=== PATIENT | female | born 1985 | race Caucasian/White ===

== ENCOUNTER 2017-11-24 10:11 | Emergency (ER) | payer BC, SELFPAY | END 2017-11-24 11:58 | disposition home or self-care (01) | PROVIDERS: Emergency Provider Nurse Practitioner; Family Provider Family Medicine; Visit Provider Nurse Practitioner | DX: J06.9 Acute upper respiratory infection, unspecified (principal); H60.91 Unspecified otitis externa, right ear; Z87.891 Personal history of nicotine dependence | CPT/HCPCS: 71020; 94640; 99201 ==

== ENCOUNTER → 2019-07-28 15:27 | Outpatient (CLI) | payer BC, SELFPAY ==
[2019-07-28 16:24] LABS: Basophils # 0.1 K/mm3 (0-0.2); Basophils % 1.1 % (0.1-2.0); Eosinophils # 0.2 K/mm3 (0.0-0.4); Eosinophils % 2.7 % (0.1-12.0); Hematocrit 43.1 % (37.0-47.0); Hemoglobin 14.2 g/dL (12.2-16.2); Lymphocytes # 3.6 K/mm3 (0.7-4.5); Lymphocytes % 51.7 % (10-50); Mean Corpuscular Hemoglobin 30.2 pg (27.0-31.2); Mean Corpuscular Volume 91.6 fl (81-99); Mean Platelet Volume 6.3 fl (7.4-10.4); Monocytes # 0.7 K/mm3 (0.1-1.0); Monocytes % 9.4 % (1.7-9.3); Neutrophils # 2.5 K/mm3 (1.8-7.8); Platelet Count 444 K/mm3 (142-424); Red Blood Count 4.71 M/mm3 (4.20-5.40); Red Cell Distribution Width 13.6 % (11.5-17.5)
[2019-07-28 16:34] LABS: MANUAL DIFFERENTIAL MANUAL DIFFERENTIAL (MANUAL DIFF)
[2019-07-28 21:53] LABS: Anisocytosis 1+; Eosinophils % 4 % (0-3); Lymphocytes % 65 % (10-50); Monocytes % 4 % (2-9); Neutrophils % 27 % (42-76); Platelet Estimate Normal; Total Cells Counted 100
[2019-07-30 07:20] LABS: HIV Screen 4th Generation wRfx Non Reactive (Non Reactive)
[2019-07-30 22:27] LABS: Hepatitis B Surface Antigen Negative (Negative); Hepatitis C Antibody <0.1 s/co ratio (0.0-0.9); Rapid Plasma Reagin Ab Titer Non Reactive (NonRea<1:1); Rubella Antibodies, IgG 8.55 index (Immune >0.99)
== END ==
PROVIDERS: Visit Provider Nurse Practitioner Obstetrics & Gynecology
DX: Z34.90 Encounter for supervision of normal pregnancy, unspecified, unspecified trimester (principal); Z3A.01 Less than 8 weeks gestation of pregnancy
CPT/HCPCS: 36415; 85007; 85025; 86592; 86703; 86762; 86850; 87340; 87380; G0432

== ENCOUNTER → 2019-08-02 13:34 | Outpatient (CLI) | payer BC, SELFPAY ==
--- NOTE | 2019-08-02 13:35 | US_ITS ---
PROCEDURE: US OB TRANSVAGINAL CLINICAL INDICATION: US OB TV before 12 wks for DATES COMPARISON: No exams were available for comparison TECHNIQUE: FINDINGS: The uterus is retroverted. A small cystic structure is present in the fundus of the uterus within the endometrium at 7 x 4 mm and could represent a early gestational sac. A pole is not evident. There is an 18 x 15 mm fibroid within the fundus of the uterus. The left ovary is 2.7 x 1.9 cm. The right ovary is 4 x 3.6 cm. There is blood flow within the ovaries. Small amount of fluid is present in the cul-de-sac. IMPRESSION: Retroverted uterus with small cystic structure within the endometrium. This could represent a very early gestational sac. Cannot confirm viability at this time. Recommend follow-up ultrasound as well as correlation with beta HCG. Dictated by: Grant Rome MD 08/02/2019 17:16 Signed by: <Electronically signed by Grant Rome MD in OV> 08/02/2019 17:16
[2019-08-02 14:55] LABS: HCG,Quantitative 829 mIU/mL
== END ==
PROVIDERS: PCP Family Medicine; Visit Provider Nurse Practitioner Obstetrics & Gynecology
DX: O26.841 Uterine size-date discrepancy, first trimester (principal); Z3A.01 Less than 8 weeks gestation of pregnancy
CPT/HCPCS: 36415; 76817; 84702

== ENCOUNTER 2019-08-02 19:20 | Observation (INO) ==
[2019-08-02 19:45] LABS: Microscopic, Urine URINE MICROSCOPIC (MICROSCOPIC)
[2019-08-02 19:53] LABS: Appearance,Urine CLEAR (Clear); Bilirubin,Urine Negative (Negative); Blood, Urine Negative (Negative); Color,Urine YELLOW (Yellow); Glucose,Urine (UA) Negative (Negative); Ketones,Urine Negative (Negative); Leukocyte Esterase,Urine Negative (Negative); Protein,Urine Negative (Negative); Specific Gravity, Urine <= 1.005 (1.005-1.030); Urobilinogen,Urine 0.2 EU/dl (0.2)
[2019-08-02 20:17] LABS: Bacteria,Urine Trace /lpf; Squamous Epithelial Cell,Urine Occasional #/hpf (0-5); WBC,Urine Occasional #/hpf (0-3)
[2019-08-02 20:39] LABS: Basophils # 0.1 K/mm3 (0-0.2); Basophils % 0.9 % (0.1-2.0); Eosinophils # 0.2 K/mm3 (0.0-0.4); Eosinophils % 2.9 % (0.1-12.0); Hematocrit 42.6 % (37.0-47.0); Hemoglobin 14.1 g/dL (12.2-16.2); Lymphocytes # 3.4 K/mm3 (0.7-4.5); Lymphocytes % 42.1 % (10-50); Mean Corpuscular HGB Conc 33.1 g/dL (31.8-35.4); Mean Corpuscular Volume 92.7 fl (81-99); Mean Platelet Volume 6.4 fl (7.4-10.4); Monocytes # 0.3 K/mm3 (0.1-1.0); Monocytes % 3.8 % (1.7-9.3); Neutrophils % 50.3 % (37.0-80.0); Platelet Count 390 K/mm3 (142-424)
[2019-08-02 21:20] LABS: Albumin Level 3.5 gm/dL (3.4-5.0); Albumin/Globulin Ratio 0.9 (1.1-1.8); Anion Gap 15.6 mEq/L (5-15); Bilirubin,Total 0.1 mg/dL (0.2-1.0); Calcium 8.9 mg/dL (8.5-10.1); Globulin 4.1 gm/dl (1.3-3.2); Total Protein,Serum 7.6 gm/dL (6.4-8.2)
--- NOTE | 2019-08-02 23:18 | Emergency Department Note ---
ED Disposition Clinical Impression: Pelvic pain Qualifiers: Weeks of gestation: less than 8 weeks Qualified Code(s): Z3A.01 - Less than 8 weeks gestation of Disposition: Admitted as Observation Condition on Discharge: Good Referrals: Frandy Castellon MD [Primary Care Provider] - - Critical Care Critical Care Time: No Attestation: On 08/02/19, the high probability of a clinically significant, sudden or life threatening deterioration of the following system(s) required my full and direct attention, intervention and personal management. The time I documented below is in addition to time spent performing reported procedures but includes the following listed in this critical care notation. Medical Decision Making - Medical Records Medical records reviewed: Yes: I reviewed the patient's medical records. - Andrea Inquiry Pt receiving controlled substance: No Vital Signs: 08/02/19 19:24 08/02/19 21:25 08/02/19 22:18 Temperature 98.6 F Temperature Source Oral Pulse Rate [Right Brachial] 98 H 96 H 94 H Respiratory Rate 20 18 18 Blood Pressure [Right Arm] 152/84 H 138/70 158/76 H Blood Pressure Mean [Right Arm] 106 92 103 Blood Pressure Source [Right Arm] Automatic Cuff Automatic Cuff Automatic Cuff Blood Pressure Position [Right Arm] Sitting Sitting Sitting 02 Sat by Pulse Oximetry 100 100 98 Oxygen Delivery Method Room Air Room Air Room Air 08/02/19 23:08 Temperature Temperature Source Pulse Rate [Right Brachial] 94 H Respiratory Rate 18 Blood Pressure [Right Arm] 172/97 H Blood Pressure Mean [Right Arm] 122 Blood Pressure Source [Right Arm] Automatic Cuff Blood Pressure Position [Right Arm] Sitting 02 Sat by Pulse Oximetry 98 Oxygen Delivery Method Room Air - Lab Data Lab results reviewed: Yes: I reviewed the patient's lab results. Lab Results 08/02/19 19:24: Urine Color Yellow, Urine Appearance Clear, Urine pH 6.0, Ur Sp ecific [place] <= 1.005, Urine Protein Negative, Urine Glucose (UA) Negative, Urine Ketones Negative, Urine Blood Negative, Urine Nitrate Negative, Urine Bilirubin Negative, Urine Urobilinogen 0.2, Ur Leukocyte Esterase Negative, Urine WBC Occasional, Ur Squamous Epith Cells Occasional, Urine Bacteria Trace 08/02/19 19:24: Urine HCG, Qual Positive 08/02/19 20:20: WBC 8.0, RBC 4.60, Hgb 14.1, Hct 42.6, MCV 92.7, MCH 30.7, MCHC 33.1, RDW 14.0, Plt Count 390, MPV 6.4 L, Neut % (Auto) 50.3, Lymph % (Auto) 42.1, [place] % (Auto) 3.8, Eos % (Auto) 2.9, Baso % (Auto) 0.9, Neut # (Auto) 4.0, Lymph # (Auto) 3.4, [place] # (Auto) 0.3, Eos # (Auto) 0.2, Baso # (Auto) 0.1 08/02/19 20:20: Sodium 140, Potassium 3.6, Chloride 103, Carbon Dioxide 25, Anion Gap 15.6 H, BUN 10, Creatinine 0.72, Estimated Creat Clear 175, Estimated GFR 93, Est GFR ( Amer) 113, Glucose 96, Calcium 8.9, Total Bilirubin 0.1 L, AST 17, ALT 36, Alkaline Phosphatase 77, Total Protein 7.6, Albumin 3.5, Globulin 4.1 H, Albumin/Globulin Ratio 0.9 L 08/02/19 20:20: HCG, Quant 875 H Result diagrams: 08/02/19 20:20 08/02/19 20:20 Orders (Tests/Meds): ED MEDICATIONS Generic Name Dose Route Start Last Admin Trade Name Laura PRN Reason Stop Dose Admin Sodium Chloride 1,000 mls @ 999 mls/hr 08/02/19 20:00 08/02/19 22:53 Sod Chlor 0.9% 1000ml Bag IV 08/02/19 21:00 Not Given .[id number] CHAITANYA - Physician Consults Physician Consulted: azul Reason -: Admission HPI - General Chief complaint: OB/Uterine Contractions Stated complaint: 4 wk Preg with Abd pain Time Seen by Provider: 08/02/19 23:13 Mode of Arrival: Ambulatory Source of Information: Patient, Spouse, Medical Record Limitations: No Limitations Description of Symptoms (Recalled from ER Triage Doc. by RN): Pt c/o abd pain and vaginal spotting that started 2 days ago. She had an ultrasound today and the pain has just gotten worse. She states she is 4 weeks . She states stated that he wanted to repeat another ultrasound in 2 days, and to come to the ER is her pain got worse. - History of Present Illness HPI Narrative: progressive lt pelvic pain in this wf with no spotting - no fever or trauma- has increased during the day and had inconclusive u/s earlier today MD Complaint: other (pelvic pain) Onset (ago): day(s) Consistency: constant Location: pelvis Severity: moderate Associated symptoms: denies other symptoms : yes Date of Last Menstrual Period: June 15 care: none - Related Data Home Medications Medication Instructions Recorded Confirmed No Known Home Medications 08/02/19 08/02/19 Allergies Allergy/AdvReac Type Severity Reaction Status Date / Time No Known Allergies Allergy Verified 08/02/19 22:32 [facility] History - Hepatitis A Screen Drug use history?: No High risk sexual behaviors?: No History of sexually transmitted infection?: No Currently employed?: No Childcare worker?: No Do you have indoor plumbing?: Yes Do you have electricity?: Yes Attestation statement:: This patient has been screened for Hepatitis A risk factors. I have reviewed the patient's past medical history: Yes Amputation: No Fractures: No - Social History Smoking Status: Current every day smoker # Packs/Day (cigarettes): 1 Alcohol Intake: former Occupational Status: employed Housing: house Family Hx:: No significant family history ROS Obtained: Yes All systems reviewed & no additional complaints - Constitutional Constitutional: Denies fever(s) - Eyes Eyes: Denies eye pain - ENT Ears, Nose, Mouth, and Throat: Denies sore throat - Cardiovascular Cardiovascular: Denies chest pain - Respiratory Respiratory: No cough - Gastrointestinal Gastrointestingal: Denies: abdominal pain - Genitourinary Female Genitourinary: Reports as per HPI, Denies abnormal vaginal bleeding, Denies hematuria - Musculoskeletal Musculoskeletal: Denies joint swelling - Integumentary/Breasts Skin/Breast: Denies rash - Neurologic Neurologic: Denies seizure-like activity Physical Exam - General General appearance: alert - Head Head exam: normocephalic - Eye Eye exam: Present: PERRL, EOMI - ENT ENT exam: Present: mucous membranes dry - Neck Neck exam: Present: trachea midline - Respiratory Respiratory exam: Absent: respiratory distress - Cardiovascular Cardiovascular exam: Present: regular rate - Abdominal Exam Abdominal exam: Present: soft - Extremities Exam Extremities exam: Present: full ROM - Neurological Exam Neurological exam: Present: alert, oriented X3, CN II-XII intact - Psychiatric Psychiatric exam: Present: normal affect - Skin Skin exam: Absent: rash
[2019-08-03 06:40] LABS: Basophils # 0.1 K/mm3 (0-0.2); Basophils % 0.8 % (0.1-2.0); Eosinophils # 0.2 K/mm3 (0.0-0.4); Eosinophils % 2.4 % (0.1-12.0); Hematocrit 36.9 % (37.0-47.0); Lymphocytes # 3.5 K/mm3 (0.7-4.5); Lymphocytes % 52.9 % (10-50); Mean Corpuscular HGB Conc 32.1 g/dL (31.8-35.4); Mean Corpuscular Volume 92.3 fl (81-99); Mean Platelet Volume 7.2 fl (7.4-10.4); Monocytes # 0.6 K/mm3 (0.1-1.0); Monocytes % 8.7 % (1.7-9.3); Neutrophils # 2.3 K/mm3 (1.8-7.8); Neutrophils % 35.3 % (37.0-80.0); Platelet Count 343 K/mm3 (142-424); White Blood Count 6.6 K/mm3 (4.8-10.8)
[2019-08-03 06:48] LABS: Hemoglobin 11.9 g/dL (12.2-16.2)
[2019-08-03 06:57] LABS: Anion Gap 11.8 mEq/L (5-15)
--- NOTE | 2019-08-03 07:20 | Pharmacy Consult Notes ---
[facility] Pharmacy VTE Monitoring - Patient Demographics Admission date: 08/03/19 Report Date: 08/03/19 Time: 07:20 Allergies/Adverse Reactions: Patient Allergies No Known Allergies Allergy (Verified 08/02/19 22:32) Height: 1.68 m Weight: 99.96 kg Patient Problems: Current Active Problems Pelvic pain (Acute) (Acute) - VTE Risk Labs: VTE Related Lab Results Hgb 11.9 g/dL (12.2-16.2) L D 08/03/19 06:25 Hct 36.9 % (37.0-47.0) L 08/03/19 06:25 Plt Count 343 K/mm3 (142-424) 08/03/19 06:25 BUN 9 mg/dL (7-18) 08/03/19 06:25 Creatinine 0.55 mg/dL (0.55-1.02) D 08/03/19 06:25 Estimated Creat Clear 230 mL/min (50-200) 08/03/19 06:25 Was VTE Risk Assessment Performed: Yes VTE Score: 0 VTE Risk Level: Very Low Risk Clinical Trial Participant: No - Prophylaxis VTE Prophylaxis Ordered?: Yes Types of VTE Prophylaxis: TEDS Knee High Location of Applied Device: Bilateral Lower Extremeties
[2019-08-03 08:09] LABS: Eosinophils % 2 % (0-3); Lymphocytes % 45 % (10-50); Monocytes % 16 % (2-9); Neutrophils % 36 % (42-76); RBC Morphology Normal; Total Cells Counted 100
--- NOTE | 2019-08-03 09:03 | History & Physical Report ---
*Admission Date: 08/03/19 *Chief complaint: Left lower quadrant pain, early *History of present illness: She is a 34-year-old 2 para 1 at about 6 weeks gestational age. She had an ultrasound yesterday that showed a gestational sac but no fetus. Her beta hCGs have dropped from 852 -725. She was admitted through the ER with left lower quadrant pain. Ultrasound yesterday showed free fluid in the pelvis as well. I suspect she may have an ectopic on the left-hand side since she complains of severe left lower quadrant pain. [facility] History I have reviewed the patient's past medical history: Yes Medical History: Denies:: Cancer, Diabetes Mellitus Type 1, Diabetes Mellitus Type 2, MRSA *Have you ever received a pneumonia vaccine?: No *Have you received a flu vaccine this season?: No Other Surgeries: Yes: Cholecystectomy Amputation: No Fractures: No - *Social History Educational Level: Completed High School Smoking Status: Current every day smoker Tobacco Type: cigarettes # Packs/Day (cigarettes): 1 Alcohol Intake: never *Occupational Status:: employed Housing: house Household Members: spouse *Travel in the last 8 weeks: None Family Hx:: Cancer Review of Systems - Review of Systems Review of systems:: pertinent systems reviewed and negative unless documented below - *Neurologic Denies seizure-like activity Meds Home Medications Medication Instructions Recorded Confirmed Type Pnv95/Iron Fum/Folic Acid 1 each PO DAILY 08/03/19 08/03/19 History [ Tablet] Allergies Allergy/AdvReac Type Severity Reaction Status Date / Time No Known Allergies Allergy Verified 08/02/19 22:32 Exam Vital signs and Labs for Last 24 Hours: Temp Pulse Resp BP Pulse Ox 98.3 F 75 17 108/56 L 92 L 08/03/19 08:00 08/03/19 08:00 08/03/19 08:00 08/03/19 08:00 08/03/19 08:00 Laboratory Results - last 24 hr 08/02/19 19:24: Urine Color Yellow, Urine Appearance Clear, Urine pH 6.0, Ur Specific [place] <= 1.005, Urine Protein Negative, Urine Glucose (UA) Negative, Urine Ketones Negative, Urine Blood Negative, Urine Nitrate Negative, Urine Bilirubin Negative, Urine Urobilinogen 0.2, Ur Leukocyte Esterase Negative, Urine WBC Occasional, Ur Squamous Epith Cells Occasional, Urine Bacteria Trace 08/02/19 19:24: Urine HCG, Qual Positive 08/02/19 20:20: WBC 8.0, RBC 4.60, Hgb 14.1, Hct 42.6, MCV 92.7, MCH 30.7, MCHC 33.1, RDW 14.0, Plt Count 390, MPV 6.4 L, Neut % (Auto) 50.3, Lymph % (Auto) 42.1, [place] % (Auto) 3.8, Eos % (Auto) 2.9, Baso % (Auto) 0.9, Neut # (Auto) 4.0, Lymph # (Auto) 3.4, [place] # (Auto) 0.3, Eos # (Auto) 0.2, Baso # (Auto) 0.1 08/02/19 20:20: Sodium 140, Potassium 3.6, Chloride 103, Carbon Dioxide 25, Anion Gap 15.6 H, BUN 10, Creatinine 0.72, Estimated Creat Clear 175, Estimated GFR 93, Est GFR ( Amer) 113, Glucose 96, Calcium 8.9, Total Bilirubin 0.1 L, AST 17, ALT 36, Alkaline Phosphatase 77, Total Protein 7.6, Albumin 3.5, Globulin 4.1 H, Albumin/Globulin Ratio 0.9 L 08/02/19 20:20: HCG, Quant 875 H 08/03/19 06:25: WBC 6.6, RBC 4.00 L, Hgb 11.9 L D, Hct 36.9 L, MCV 92.3, MCH 29.6, MCHC 32.1, RDW 14.0, Plt Count 343, MPV 7.2 L, Neut % (Auto) 35.3 L, Lymph % (Auto) 52.9 H, [place] % (Auto) 8.7, Eos % (Auto) 2.4, Baso % (Auto) 0.8, Neut # (Auto) 2.3, Lymph # (Auto) 3.5, [place] # (Auto) 0.6, Eos # (Auto) 0.2, Baso # (Auto) 0.1, Total Counted 100, Neutrophils % (Manual) 36 L, Band Neutrophils % 1.0, Lymphocytes % (Manual) 45, Monocytes % (Manual) 16 H, Eosinophils % (Manual) 2, Platelet Estimate Normal, RBC Morphology Normal 08/03/19 06:25: Sodium 140, Potassium 3.8, Chloride 108 H, Carbon Dioxide 24, Anion Gap 11.8, BUN 9, Creatinine 0.55 D, Estimated Creat Clear 230, Estimated GFR 127, Est GFR ( Amer) 154 D, Glucose 99, Calcium 8.0 L D, HCG, Quant 752 H I & O for Last 24 hours: Intake & Output 07/31/19 08/01/19 08/02/19 08/03/19 11:59 11:59 11:59 11:59 Intake Total 2255 / 2255 Balance 2255 Weight 220 lb 6 oz - Constitutional no acute distress - *Routine HEENT Exam Head: Present: normocephalic Eye: Present: EOMI, PERRL ENT: Present: mucous membranes moist - *Routine Neck Exam Present: supple, full ROM - *Routine Respiratory Exam Absent: accessory muscle use (good air entry bilaterally), wheezes, crackles - *Routine Cardiovascular Exam Present: RRR. Absent: murmur - *Routine Abdominal Exam Present: soft, normoactive bowel sounds. Absent: tenderness, rebound, guarding, mass - *Routine Rectal Exam Patient deferred: visual exam, digital exam - *Routine Exam Patient deferred: external exam, groin exam, perineal exam - *Routine Extremities Exam Present: full ROM. Absent: cyanosis, edema, calf tenderness - *Routine Skin Exam Present: intact (good color) - *Routine Neurological Exam Present: alert, oriented X3 - Routine Psychiatric Exam Present: normal affect Assessment and Plan (1) Ectopic without intrauterine Current visit: Yes Status: Acute Category: Medical Code(s): O00.90 - Unspecified ectopic without intrauterine (2) Pelvic pain Current visit: Yes Status: Acute Category: Medical Code(s): R10.2 - Pelvic and perineal pain (3) Current visit: Yes Status: Acute Qualifiers: Weeks of gestation: less than 8 weeks Qualified Code(s): Z3A.01 - Less than 8 weeks gestation of Category: Medical Code(s): Z34.90 - Encounter for supervision of normal , unspecified, unspecified trimester - Assessment and plan all Dx Assessment and Plan for all problems:: Her beta hCGs have dropped and I suspect she has an ectopic that may be leaking. We will go ahead with a laparoscopy this morning. I discussed the risks of salpingectomy. We discussed salpingostomy. We discussed the risks of surgery that includes bleeding, infection, injuries to the bowel and bladder. We discussed the rare risk of laparotomy. All questions were answered and consents were signed. I told her that I cannot promise that I can save her left tube if that indeed is where the ectopic is located because it may have already ruptured. She understands this. She understands that it may affect her future fertility as well. This was a Clomid induced .
[2019-08-03 12:02] LABS: Basophils # 0.1 K/mm3 (0-0.2); Basophils % 1.1 % (0.1-2.0); Eosinophils # 0.2 K/mm3 (0.0-0.4); Hemoglobin 12.4 g/dL (12.2-16.2); Lymphocytes % 52.4 % (10-50); Mean Corpuscular HGB Conc 31.8 g/dL (31.8-35.4); Mean Corpuscular Volume 92.4 fl (81-99); Mean Platelet Volume 6.4 fl (7.4-10.4); Monocytes # 0.7 K/mm3 (0.1-1.0); Neutrophils # 1.8 K/mm3 (1.8-7.8); Neutrophils % 31.5 % (37.0-80.0); Platelet Count 330 K/mm3 (142-424); Red Blood Count 4.22 M/mm3 (4.20-5.40); White Blood Count 5.7 K/mm3 (4.8-10.8)
--- NOTE | 2019-08-03 16:36 | Operative Note ---
Date of procedure: 08/03/19 Pre-op Diagnosis:: Severe left lower quadrant pain, possible ectopic , missed Post-op Diagnosis:: Severe left lower quadrant pain, left ovarian adhesion, no evidence of ectopic , missed Procedure performed:: Diagnostic laparoscopy, laparoscopy with lysis of ovarian adhesion, dilation and curettage Surgeon:: Myke Adrian MD FUNERAL ASSISTANT:: Tre Sánchez Anesthesia: GETA Estimated blood loss (mL): 100 Clinical Note:: She is a 34-year-old 2 para 1 who is 6+ weeks gestational age. She was admitted last night through the ER with severe lower abdominal pain. She was seen this morning and continued to have severe left lower quadrant pain. An ectopic was suspected. She did have an ultrasound yesterday that showed fluid in the pelvis. Her beta hCG is dropped from 875-750. I also felt that given the beta is dropping she was having a possible miscarriage as well. Operative findings:: She had an anteverted bulky uterus. There was a fibroid within the uterus. The left ovary at its medial and was adherent to the side of the uterus. Both tubes were seen and appeared completely normal. There was no evidence of any bleeding from either tube. The fluid in the pelvis was straw-colored. Operative note:: She was taken the operating room where general anesthesia was found be adequate. She was prepped and draped in normal sterile fashion in the semilithotomy position. Weighted speculum space in the vagina, the anterior lip of the cervix was grasped and a Christine uterine manipulator was placed within the uterine cavity. I then changed gloves and injected approximately 10 cc of 0.5% ropivacaine around the umbilicus. I made a small incision within the umbilicus and then inserted a Veress needle into the abdominal cavity. The abdominal cavity was then insufflated with carbon dioxide gas to a pressure of 20 mmHg. I then injected through and through the pubic hairline, made a small incision here and inserted a 5 mm trocar under direct vision. This was followed by identifying the inferior epigastric arteries on the left side, going lateral to these and injected through and through. I then inserted a 5 mm trocar here under direct vision as well. The findings were as previously dictated. She did have some adhesions along the ascending colon on the right side. Tubes and ovaries were visualized and appeared completely normal except for the left ovary that was adherent to the left side of the uterus. There is a small piece of tissue hanging from this and I sent off to pathology. There is a small amount of bleeding from the posterior aspect of the uterus and it was slightly raw from using the treatments. I sprayed this area with Edy. We then rinsed the pelvis well with warm saline and injected approximately 30 cc of 0.5% ropivacaine into the pelvis. Secondary trochars were then removed under direct vision. Gas was noted of the abdomen and the primary trocar and camera removed together. No bowel was seen to follow. The 11 mm umbilical port was closed with [id number] 2-0 Vicryl suture. The skin was closed with some particular 4-0 Monocryl suture. The 5 mm trocar sites were closed with subcuticular 4-0 Monocryl suture. I then please the patient in the lithotomy position and remove the Christine uterine manipulator. I further dilate the cervix to approximately 8 mm. Then using a medium curette I curetted the entire uterine contents. This was sent to pathology. She tolerated procedure well and was taken to the recovery room in excellent condition. All sponge instrument and needle counts were correct. The estimate of blood loss was less than 100 cc. Condition: stable Disposition: PACU Specimens:: Left ovarian adhesion, endometrial curettings Complications:: None
--- NOTE | 2019-08-03 16:41 | Progress Note ---
[facility] Anesthesia Checklist - Patient Identification Patient Identification: Arm Band - Structural Data Admitted From: Inpatient Planned Operative Procedure/s: diagnostic laparoscopy Consent for Planned Operative Procedure(s) Verified: Yes Verified Documents: Surgical Consent, History and Physical - NPO Status Verified Time NPO: 00:00 - Additional verifications Anesthesia Reactions: No - Airway Assessment C-Spine Mobility Assessed: Yes (mp2) TMJ Mobility Assessed: Yes Dentition: Good Dentition - Neurological Assessment Level of Consciousness: Awake, Alert - Anesthesia Plan Anesthesia Risk discussed: Yes Anesthesia Plan: Verified ASA Class: II Anesthesia Type: General [facility] History I have reviewed the patient's past medical history: Yes Medical History: Denies:: Cancer, Diabetes Mellitus Type 1, Diabetes Mellitus Type 2, MRSA *Have you ever received a pneumonia vaccine?: No *Have you received a flu vaccine this season?: No Anesthesia experience/problems:: nac Other Surgeries: Yes: Cholecystectomy Amputation: No Fractures: No - *Social History Educational Level: Completed High School Smoking Status: Current every day smoker Tobacco Type: cigarettes # Packs/Day (cigarettes): 1 Alcohol Intake: never Substance Use Type: denies use *Occupational Status:: employed Housing: house Household Members: spouse *Travel in the last 8 weeks: None Family Hx:: Cancer
--- NOTE | 2019-08-03 16:42 | Progress Note ---
[facility] Anesthesia Record Part II Discharge Time: 17:05 Destination: 2nd floor PACU nurse assessment reviewed?: Yes Patient Condition:: Good Anesthesia Complications:: None Swallowing reflex intact?: Yes Cyanosis?: No
--- NOTE | 2019-08-03 16:42 | Progress Note ---
[facility] Anesthesia Record Part I Intake, IV Amount: 800 Estimated blood loss (mL): 100 Urine output (mL): 50 Blood Pressure: 128/57 SaO2: 95 Pulse Rate: 82 Respiratory Rate: 16 Temperature: 97.5 F Patient is:: Drowsy, Stable Stable to PACU at:: 16:35
--- NOTE | 2019-08-03 16:46 | Discharge Summary ---
General - General Admission date:: 08/03/19 Discharge date: 08/03/19 HPI HPI: She is a 34-year-old 2 para 1 at about 6 weeks gestational age. She had an ultrasound yesterday that showed a gestational sac but no fetus. Her beta hCGs have dropped from 852 -725. She was admitted through the ER with left lower quadrant pain. Ultrasound yesterday showed free fluid in the pelvis as well. I suspect she may have an ectopic on the left-hand side since she complains of severe left lower quadrant pain. Hospital Course Hospital Course: This morning she had continued severe left lower quadrant pain and I suspected an ectopic . As result of that she underwent a diagnostic laparoscopy. At the time of the diagnostic laparoscopy there was no evidence of an ectopic . Both tubes were followed to their fimbriated end. There was an adhesion of the left ovary to the left side of the uterus and this was taken down with blunt dissection. It was a small amount of tissue adherent here and this was sent off to pathology. A D&C was performed as well. Her beta hCGs had dropped from 8 75-7 50. I missed was suspected if an ectopic was not found which was the case. Objective Vital signs: Temp Pulse Resp BP Pulse Ox 97.5 F L 82 16 128/57 L 92 L 08/03/19 16:42 08/03/19 16:42 08/03/19 16:42 08/03/19 16:42 08/03/19 08:00 no acute distress Results Labs on day of discharge: Labs from last 24 hours 08/03/19 08/03/19 08/03/19 11:15 06:25 06:25 WBC 5.7 6.6 RBC 4.22 4.00 L Hgb 12.4 11.9 L D Hct 39.0 36.9 L MCV 92.4 92.3 MCH 29.4 29.6 MCHC 31.8 32.1 RDW 14.0 14.0 Plt Count 330 343 MPV 6.4 L 7.2 L Neut % (Auto) 31.5 L 35.3 L Lymph % (Auto) 52.4 H 52.9 H [place] % (Auto) 12.0 H 8.7 Eos % (Auto) 3.0 2.4 Baso % (Auto) 1.1 0.8 Neut # (Auto) 1.8 2.3 Lymph # (Auto) 3.0 3.5 [place] # (Auto) 0.7 0.6 Eos # (Auto) 0.2 0.2 Baso # (Auto) 0.1 0.1 Total Counted 100 Neutrophils % (Manual) 36 L Band Neutrophils % 1.0 Lymphocytes % (Manual) 45 Monocytes % (Manual) 16 H Eosinophils % (Manual) 2 Platelet Estimate Normal RBC Morphology Normal Sodium 140 Potassium 3.8 Chloride 108 H Carbon Dioxide 24 Anion Gap 11.8 BUN 9 Creatinine 0.55 D Estimated Creat Clear 230 Estimated GFR 127 Est GFR ( Amer) 154 D Glucose 99 Calcium 8.0 L D Total Bilirubin AST ALT Alkaline Phosphatase Total Protein Albumin Globulin Albumin/Globulin Ratio HCG, Quant 752 H Urine Color Urine Appearance Urine pH Ur Specific [place] Urine Protein Urine Glucose (UA) Urine Ketones Urine Blood Urine Nitrate Urine Bilirubin Urine Urobilinogen Ur Leukocyte Esterase Urine WBC Ur Squamous Epith Cells Urine Bacteria Urine HCG, Qual 08/02/19 08/02/19 08/02/19 20:20 20:20 20:20 WBC 8.0 RBC 4.60 Hgb 14.1 Hct 42.6 MCV 92.7 MCH 30.7 MCHC 33.1 RDW 14.0 Plt Count 390 MPV 6.4 L Neut % (Auto) 50.3 Lymph % (Auto) 42.1 [place] % (Auto) 3.8 Eos % (Auto) 2.9 Baso % (Auto) 0.9 Neut # (Auto) 4.0 Lymph # (Auto) 3.4 [place] # (Auto) 0.3 Eos # (Auto) 0.2 Baso # (Auto) 0.1 Total Counted Neutrophils % (Manual) Band Neutrophils % Lymphocytes % (Manual) Monocytes % (Manual) Eosinophils % (Manual) Platelet Estimate RBC Morphology Sodium 140 Potassium 3.6 Chloride 103 Carbon Dioxide 25 Anion Gap 15.6 H BUN 10 Creatinine 0.72 Estimated Creat Clear 175 Estimated GFR 93 Est GFR ( Amer) 113 Glucose 96 Calcium 8.9 Total Bilirubin 0.1 L AST 17 ALT 36 Alkaline Phosphatase 77 Total Protein 7.6 Albumin 3.5 Globulin 4.1 H Albumin/Globulin Ratio 0.9 L HCG, Quant 875 H Urine Color Urine Appearance Urine pH Ur Specific [place] Urine Protein Urine Glucose (UA) Urine Ketones Urine Blood Urine Nitrate Urine Bilirubin Urine Urobilinogen Ur Leukocyte Esterase Urine WBC Ur Squamous Epith Cells Urine Bacteria Urine HCG, Qual 08/02/19 08/02/19 19:24 19:24 WBC RBC Hgb Hct MCV MCH MCHC RDW Plt Count MPV Neut % (Auto) Lymph % (Auto) [place] % (Auto) Eos % (Auto) Baso % (Auto) Neut # (Auto) Lymph # (Auto) [place] # (Auto) Eos # (Auto) Baso # (Auto) Total Counted Neutrophils % (Manual) Band Neutrophils % Lymphocytes % (Manual) Monocytes % (Manual) Eosinophils % (Manual) Platelet Estimate RBC Morphology Sodium Potassium Chloride Carbon Dioxide Anion Gap BUN Creatinine Estimated Creat Clear Estimated GFR Est GFR ( Amer) Glucose Calcium Total Bilirubin AST ALT Alkaline Phosphatase Total Protein Albumin Globulin Albumin/Globulin Ratio HCG, Quant Urine Color Yellow Urine Appearance Clear Urine pH 6.0 Ur Specific [place] <= 1.005 Urine Protein Negative Urine Glucose (UA) Negative Urine Ketones Negative Urine Blood Negative Urine Nitrate Negative Urine Bilirubin Negative Urine Urobilinogen 0.2 Ur Leukocyte Esterase Negative Urine WBC Occasional Ur Squamous Epith Cells Occasional Urine Bacteria Trace Urine HCG, Qual Positive DS: Diagnosis - Discharge Diagnosis (1) Ectopic without intrauterine Status: Acute (2) Pelvic pain Status: Acute (3) Status: Acute (4) Missed with demise before 20 completed weeks of gestation Status: Acute Discharge Plan - Patient Discharge Instructions ACTIVITY: No heavy lifting DIET: continue same diet Patient Instructions: DI for Surgical Site Infection, Surgical Site Infection, DI for Pelvic Pain - Follow up Plan Disposition: Home, Self-[facility] Medications: Home Medications Medication Instructions Recorded Confirmed Type Pnv95/Iron Fum/Folic Acid 1 each PO DAILY 08/03/19 08/03/19 History [ Tablet] Prescriptions/Medication Reconciliation: Continued Pnv95/Iron Fum/Folic Acid [ Tablet] 1 each PO DAILY - Problem Reconciliation Problems Reviewed?: Yes
== END 2019-08-03 18:32 | disposition home or self-care (01) ==
LOC: ER 19:20 → 2ND 19:20
PROVIDERS: ADMIT Nurse Practitioner Obstetrics & Gynecology; ATTEND Nurse Practitioner Obstetrics & Gynecology
DX: O02.1 Missed abortion; N73.6 Female pelvic peritoneal adhesions (postinfective)
CPT/HCPCS: 36415; 80048; 80053; 81001; 81025; 84702; 85007; 85025; 96365; 99284; G0378; J2405; J2710

== ENCOUNTER → 2019-08-17 10:49 | Outpatient (CLI) | payer BC, SELFPAY ==
[2019-08-17 12:48] LABS: HCG,Quantitative 0 mIU/mL
== END ==
PROVIDERS: Visit Provider Nurse Practitioner Obstetrics & Gynecology
DX: Z48.89 Encounter for other specified surgical aftercare (principal)
CPT/HCPCS: 36415; 84702

== ENCOUNTER → 2020-01-31 14:27 | Outpatient (POV) | payer BC, SELFPAY | PROVIDERS: PCP Dermatology; Visit Provider Dermatology | DX: Z00.00 Encounter for general adult medical examination without abnormal findings (principal) ==

== ENCOUNTER 2020-05-04 16:24 | Emergency (ER) | payer BC, SELFPAY ==
[2020-05-04 16:26] VITALS: BP 141/97; PULSE 95; RESP 18; TEMP 37.3; O2SAT 98; BMI 38.2
--- NOTE | 2020-05-04 16:42 | CT_ITS ---
Procedure: CT ABDOMEN PELVIS WO CON Patient Age:35Y CLINICAL INDICATION: flank pain Left flank pain. Prior cholecystectomy is COMPARISON: US TRANSVAGINAL from 05/04/2020 TECHNIQUE: No IV contrast. No oral contrast Helical axial images obtained with sagittal and coronal reformats. All CT scans at the facility use one or more dose reduction, viz: automated exposure control, ma/kV adjustment per patient size (including targeted exams where dose is matched to indication, i.e. head), or iterative reconstruction technique. FINDINGS: Lower thorax: Lung bases clear. Heart normal size. Possible small hiatal hernia ABDOMEN/pelvis: Lack of oral and IV contrast decrease sensitivity Liver: No masses or biliary dilatation. Suggestion minimal diffuse fatty changes Gallbladder: Surgically removed. No biliary ductal dilatation. Pancreas: No masses or peripancreatic fluid collections. Spleen: unremarkable Adrenals: unremarkable Kidneys/ureters: unremarkable. No calculi. No obstruction PELVIS: Air within the vagina compatible with a tampon. Uterus is anteverted on this CT study.. Previous ultrasounds have shown a small less than 2 cm fibroid posterior myometrium. With this only slight slight bulge from posterior aspect of uterus seen on axial image 102 noted-which could reflect such. Posterior to the uterus large bilobed area of density which I suspect reflects the 2 adjacent enlarged ovaries with associated cystic changes at each ovary. Cannot exclude a more singular mass-ultrasound suggested. Left ovary: On axial image 98,, 99 suspect we visualize what appears to be left ovary, measures 5.6 cm on this image and contains a 3.5 cm cyst at its superior aspect; with likely additional smaller cyst along its anterior aspect more inferiorly Right ovary. On these same axial slices the right ovary I believe measures up to 7.2 cm length. Round roughly 4 cm slightly hyperdense area within the right ovary is noted and could reflect hemorrhagic cyst, just posterior to the right uterus. Again ultrasound pelvis follow-up recommended for further evaluation. Only question scant fluid cul-de-sac no prominent free fluid ---GI tract---no acute findings GI tract. No bowel dilatation or obstruction. Appendix: Appears normal and best identified coronal image 43 Stomach, small bowel bowel: Nondistended. No obvious mass or thickening. Terminal ileum: No inflammatory changes but upper normal caliber fluid-filled terminal ileum Large bowel.. Minimal stool seen throughout the right and transverse colon.. Scant stool and gas left: And rectosigmoid. Upper normal wall thickness descending colon most likely reflecting lack of distension Peritoneum: No obvious inflammatory changes. No free air. Lymph nodes: . Scattered small mesenteric nodes observed period nonspecific. No significant pathologic appearing enlarged nodes otherwise Vasculature: No evidence of abdominal aortic aneurysm. No retroperitoneal hemorrhage evident. Bones: No acute fracture IMPRESSION: 1... Bi lobed complex density behind the uterus-most likely reflects enlarged right and left ovary adjacent to 1 another behind the uterus. Appear to be cysts in both ovaries. Also note 4 cm hyperdense area right ovary possibly reflect hemorrhagic cyst.-pelvic ultrasound follow-up recommended. 2. No prominent nor acute findings abdomen pelvis otherwise seen: . Appendix normal . Scattered small mesenteric nodes of incidentally noted . Suggestion minimal diffuse fatty changes liver Dictated by: Bunny Barbour MD 05/07/2020 09:29 Electronically signed by Bunny Barbour MD in [facility] 05/07/2020 09:29
--- NOTE | 2020-05-04 16:45 | [facility].EDABDPAI ---
ED Disposition Clinical Impression: Abdominal pain Qualifiers: Abdominal location: left lower quadrant Qualified Code(s): R10.32 - Left lower quadrant pain Ovarian cyst Qualifiers: Laterality: bilateral Qualified Code(s): N83.201 - Unspecified ovarian cyst, right side; N83.202 - Unspecified ovarian cyst, left side Uterine fibroid Qualifiers: Uterine leiomyoma location: unspecified location Qualified Code(s): D25.9 - Leiomyoma of uterus, unspecified Disposition: Home, Self-Care Condition on Discharge: Good Instructions: DI for Ovarian Cyst, DI for Uterine Fibroids Additional Instructions: You have been evaluated for abdominal pain, found to have ovarian cysts and a uterine fibroid. It is very important that you follow-up with your [employer] [employer]. Return to the emergency department if you have any new or worsening pain, this could be a sign of intermittent ovarian torsion which could be a surgical emergency. Referrals: Sugey Robison MD [Primary Care Provider] - Time of Disposition: 19:45 - Critical Care Critical Care Time: No Attestation: On 05/04/20, the high probability of a clinically significant, sudden or life threatening deterioration of the following system(s) required my full and direct attention, intervention and personal management. The time I documented below is in addition to time spent performing reported procedures but includes the following listed in this critical care notation. Medical Decision Making - Andrea Inquiry Pt receiving controlled substance: No Vital Signs: 05/04/20 16:26 05/04/20 17:43 05/04/20 18:16 Temperature 99.1 F Temperature Source Oral Pulse Rate [Right] 95 H 73 71 Respiratory Rate 18 20 18 Blood Pressure [Right Arm] 141/97 H 120/76 110/55 L Blood Pressure Mean [Right Arm] 111 90 73 Blood Pressure Source [Right Arm] Automatic Cuff Automatic Cuff Blood Pressure Position [Right Arm] Sitting Sitting 02 Sat by Pulse Oximetry 98 91 L 99 05/04/20 18:38 Temperature Temperature Source Pulse Rate [Right] 66 Respiratory Rate 18 Blood Pressure [Right Arm] 117/59 L Blood Pressure Mean [Right Arm] 78 Blood Pressure Source [Right Arm] Automatic Cuff Blood Pressure Position [Right Arm] Sitting 02 Sat by Pulse Oximetry 99 - Lab Data Lab Results 05/04/20 16:30: Urine Color Yellow, Urine Appearance Clear, Urine pH 6.0, Ur Specific [place] <= 1.005, Urine Protein Negative, Urine Glucose (UA) Negative, Urine Ketones Negative, Urine Blood 2+, Urine Nitrate Negative, Urine Bilirubin Negative, Urine Urobilinogen 0.2, Ur Leukocyte Esterase Negative, Urine RBC 3-5, Urine WBC None, Ur Squamous Epith Cells Occasional, Amorphous Sediment Trace, Urine Bacteria None 05/04/20 16:30: WBC 6.8, RBC 4.45, Hgb 13.1, Hct 38.9, MCV 87.4, MCH 29.4, MCHC 33.6, RDW 14.4, Plt Count 460 H, MPV 6.5 L, Neut % (Auto) 30.8 L, Lymph % (Auto) 48.8, [place] % (Auto) 16.4 H, Eos % (Auto) 2.9, Baso % (Auto) 1.0, Neut # (Auto) 2.1, Lymph # (Auto) 3.3, [place] # (Auto) 1.1 H, Eos # (Auto) 0.2, Baso # (Auto) 0.1 05/04/20 16:30: Urine HCG, Qual Negative 05/04/20 16:30: Sodium 140, Potassium 3.9, Chloride 107, Carbon Dioxide 24, Anion Gap 12.9, BUN 7, Creatinine 0.50 L, Estimated Creat Clear 261, Estimated GFR 141, Est GFR ( Amer) 171, Glucose 100, Calcium 8.8, Total Bilirubin 0.4, AST 32, ALT 33, Alkaline Phosphatase 77, Total Protein 7.4, Albumin 3.9, Globulin 3.5 H, Albumin/Globulin Ratio 1.1, Amylase 70, Lipase 144 Result diagrams: 05/04/20 16:30 05/04/20 16:30 Orders (Tests/Meds): ED MEDICATIONS Generic Name Dose Route Start Last Admin Trade Name Freq PRN Reason Stop Dose Admin Sodium Chloride 1,000 mls @ 999 mls/hr 05/04/20 16:45 05/04/20 17:04 Sod Chlor 0.9% 1000ml Bag IV 05/04/20 17:45 999 mls/hr .Q1H1M CHAITANYA Administration Discontinued Medications Generic Name Dose Route Start Last Admin Trade Name Freq PRN Reason Stop Dose Admin Ketorolac Tromethamine 30 mg 05/04/20 17:03 05/04/20
[2020-05-04 16:47] LABS: Microscopic, Urine URINE MICROSCOPIC (MICROSCOPIC)
[2020-05-04 16:55] LABS: Appearance,Urine CLEAR (Clear); Bilirubin,Urine Negative (Negative); Blood, Urine 2+ (Negative); Color,Urine YELLOW (Yellow); Glucose,Urine (UA) Negative (Negative); Ketones,Urine Negative (Negative); Leukocyte Esterase,Urine Negative (Negative); Nitrate,Urine Negative (Negative); Protein,Urine Negative (Negative); Specific Gravity, Urine <= 1.005 (1.005-1.030); Urobilinogen,Urine 0.2 EU/dl (0.2)
[2020-05-04 16:57] LABS: Urine Pregnancy, HCG Qual. Negative (Negative)
[2020-05-04 17:05] LABS: Basophils # 0.1 K/mm3 (0-0.2); Eosinophils # 0.2 K/mm3 (0.0-0.4); Eosinophils % 2.9 % (0.1-12.0); Hematocrit 38.9 % (37.0-47.0); Hemoglobin 13.1 g/dL (12.2-16.2); Lymphocytes # 3.3 K/mm3 (0.7-4.5); Lymphocytes % 48.8 % (10-50); Mean Corpuscular HGB Conc 33.6 g/dL (31.8-35.4); Mean Corpuscular Hemoglobin 29.4 pg (27.0-31.2); Mean Corpuscular Volume 87.4 fl (81-99); Mean Platelet Volume 6.5 fl (7.4-10.4); Monocytes # 1.1 K/mm3 (0.1-1.0); Monocytes % 16.4 % (1.7-9.3); Neutrophils # 2.1 K/mm3 (1.8-7.8); Neutrophils % 30.8 % (37.0-80.0); Platelet Count 460 K/mm3 (142-424); Red Blood Count 4.45 M/mm3 (4.20-5.40); Red Cell Distribution Width 14.4 % (11.5-17.5); White Blood Count 6.8 K/mm3 (4.8-10.8)
[2020-05-04 17:08] LABS: Chloride 107 mmol/L (98-107); Sodium 140 mmol/L (136-145)
[2020-05-04 17:09] LABS: Potassium 3.9 mmoL/L (3.5-5.1)
[2020-05-04 17:11] LABS: Alanine Aminotransferase 33 U/L (12-78); Albumin Level 3.9 g/dl (3.5-5.0); Albumin/Globulin Ratio 1.1 (1.1-1.8); Alkaline Phosphatase 77 U/L (38-126); Amylase 70 U/L (30-110); Anion Gap 12.9 mEq/L (5-15); Aspartate Amino Transferase 32 U/L (14-36); Bilirubin,Total 0.4 mg/dl (0.2-1.3); Blood Urea Nitrogen 7 mg/dl (7-17); Calcium 8.8 mg/dl (8.4-10.2); Carbon Dioxide 24 mmol/L (22.0-30.0); Creatinine Clearance Estimated 261 mL/min (50-200); Estimated Glomerular Filt Rate 141 ml/min (>60); GFR (African American) 171 ML/MIN (>60); Globulin 3.5 g/dL (1.3-3.2); Glucose 100 mg/dl (74-100); Lipase 144 U/L (23-300); Total Protein,Serum 7.4 g/dl (6.3-8.2)
[2020-05-04 17:27] LABS: Amorphous Sediment,Urine Trace /lpf; Squamous Epithelial Cell,Urine Occasional #/hpf (0-5)
[2020-05-04 17:43] VITALS: BP 120/76; PULSE 73; RESP 20; O2SAT 91
[2020-05-04 18:16] VITALS: BP 110/55; PULSE 71; RESP 18; O2SAT 99
--- NOTE | 2020-05-04 18:37 | PC.NURSE ---
Franco notified of US and stated the tech was in surgery at this time but will be down to do the transvaginal when she is free.
[2020-05-04 18:38] VITALS: BP 117/59; PULSE 66; RESP 18; O2SAT 99
--- NOTE | 2020-05-04 18:38 | US_ITS ---
PROCEDURE: US TRANSVAGINAL Patient Age:35Y CLINICAL INDICATION: CT f/u left lower quadrant pain left flank pain . Abnormal CTpelvic COMPARISON: US OB TRANSVAGINAL from 08/02/2019 CT ABDOMEN PELVIS WO CON from 05/04/2020 FINDINGS: Mildly enlarged retroflexed uterus 8.5 cm in length x4 0.8 x 5.8 cm wide. Endometrium relatively thickened measuring 1. 5 cm but no patient is currently on her cycle Uterine fibroid posterior myometrium measuring 1.7 x 1.5 x 1.6 cm. A small nabothian cyst largest 5 mm size Bilateral enlarged ovaries difficult to distinguish separate ovaries due to their size is a abut 1 another. Bilateral cyst with complex cystic components. No fluid cul-de-sac LEFT ovary: Enlarged left ovarian structure with numerous cysts. Complex cystic left ovary measuring up to 6.7 cm x 3.4 cm x 5.6 cm Largest irregular cyst at the left ovary 3 cm x 2.4 cm. 2nd dominant cyst with debris 2.4 cm x 2.3 cm x 2 cm-with mixed density within this cyst. Other smaller cyst are also noted. Adequate flow to the left ovary. RIGHT OVARY complex is also enlarged measuring 5.33 cm x 6.5 cm x 4.1 cm The right ovary is more difficult to visualize appear to be air of2 just over 2 cm is cysts at its posterior aspect on some of the views, with suggestive amidst density 2.6 cm area at the anterior aspect of right ovary. Which will will benefit from follow-up ultrasound as well other above findings. . T there seems to be adequate flow to both ovaries on submitted images with no significant fluid cul-de-sac but IMPRESSION: Bilateral ovarian enlargement Ovaries reside posterior uterus and difficult to separate distinguish from 1 another Left ovary complex measure up to 6.7 cm maximally, and containing multiple cysts. The largest dominant cyst measuring 3 cm. A 2nd debris-filled cyst measuring 2.4 cm Right ovary overall enlarged measuring up to 6.5 cm maximally Two dominant cysts are seen at its posterior aspect with less well-defined mixed density area 2.6 cm at its anterior aspect. Follow-up ultrasound 1-2 months recommended for this and other features Appears to be adequate flow to both ovaries current. No significant fluid in cul-de-sac. Slight enlarged retroflexed uterus with 1.7 cm fibroid posterior myometrium . Generous is slightly thickened endometrial stripe which could reflect patient on current cycle Dictated by: Bunny Barbour MD 05/06/2020 10:26 Electronically signed by Bunny Barbour MD in [facility] 05/06/2020 10:26
[2020-05-04 20:13] VITALS: BP 127/84; PULSE 71; RESP 15; TEMP 36.7; O2SAT 98
== END 2020-05-04 20:14 | disposition home or self-care (01) ==
PROVIDERS: Emergency Provider Emergency Medicine; PCP Family Medicine
DX: N83.202 Unspecified ovarian cyst, left side (principal); D25.9 Leiomyoma of uterus, unspecified; F17.210 Nicotine dependence, cigarettes, uncomplicated
CPT/HCPCS: 74176; 76830; 80053; 81001; 81025; 82150; 83690; 85025; 96365; 96375; 99283; 99284; J2405

== ENCOUNTER → 2020-07-03 10:26 | Outpatient (CLI) | payer BC, SELFPAY ==
[2020-07-03 11:27] LABS: Free Thyroxine Index 3.7 ug/dL (5.93-13.13); T4 (Thyroxine) 11.8 ug/dl (5.53-11.0); Triiodothryronine (T3) Uptake 31 % (23.5-40.5)
[2020-07-03 11:41] LABS: Thyroid Stimulating Hormone 1.81 uIU/mL (0.465-4.68)
== END ==
PROVIDERS: Visit Provider Nurse Practitioner Obstetrics & Gynecology
DX: L65.9 Nonscarring hair loss, unspecified (principal); R53.82 Chronic fatigue, unspecified; R53.83 Other fatigue
CPT/HCPCS: 36415; 84436; 84443; 84479

== ENCOUNTER → 2020-08-27 11:47 | Outpatient (CLI) | payer BC, SELFPAY ==
[2020-08-27 12:54] LABS: HCG,Quantitative 1396 mIU/ml (0-5.42)
== END ==
PROVIDERS: Visit Provider Nurse Practitioner Obstetrics & Gynecology
DX: Z34.90 Encounter for supervision of normal pregnancy, unspecified, unspecified trimester (principal)
CPT/HCPCS: 36415; 84702

== ENCOUNTER → 2020-09-06 10:06 | Outpatient (CLI) | payer BC, SELFPAY ==
--- NOTE | 2020-09-06 10:23 | US_ITS ---
PROCEDURE: US OB TRANSVAGINAL CLINICAL INDICATION: DATES COMPARISON: US US OB TRANSVAGINAL from 08/02/[address] ABDOMEN PELVIS WO CON from 05/04/2020 FINDINGS: An intrauterine gestational sac is present with a pole with a crown-rump length of 0.27cm correlating to gestational age of 5weeks 6days. heart tones are present with an FHR of 130bpm. Yolk sac is noted. 2 cm fibroid is present in the posterior aspect of the body of the uterus. The uterus is retroverted. There is a persistent 5 cm area of heterogeneous rounded echogenicity posterior to the uterus. Real-time imaging is performed of this area. It is uncertain whether this represents an enlarged ovary or pedunculated fibroid. This had a somewhat similar appearance on an older study of 08/02/2019. A normal right ovary is not definitely identified. Second-look was performed with question of a small ovary in the right adnexal area. This however is not certain. IMPRESSION: Live IUP at 5 weeks 6 days. Estimated due date by Ultrasound is 05/03/2021 Retroverted uterus with small intrauterine fibroid. Pedunculated fibroid versus enlarged right ovary. Further evaluation could be obtained with MRI if clinically warranted. The findings do not appear significantly changed compared to an older ultrasound 05/04/2020 Dictated by: Grant Rome MD 09/07/2020 09:03 Grant Rome MD in [facility] 09/07/2020 09:03
[2020-09-06 12:25] LABS: Basophils # 0.1 K/mm3 (0-0.2); Basophils % 1.3 % (0.1-2.0); Eosinophils # 0.1 K/mm3 (0.0-0.4); Eosinophils % 3.4 % (0.1-12.0); Hematocrit 40.4 % (37.0-47.0); Hemoglobin 12.5 g/dL (12.2-16.2); Lymphocytes # 1.2 K/mm3 (0.7-4.5); Lymphocytes % 32.2 % (10-50); Mean Corpuscular HGB Conc 30.9 g/dL (31.8-35.4); Mean Corpuscular Hemoglobin 28.5 pg (27.0-31.2); Mean Corpuscular Volume 92.2 fl (81-99); Mean Platelet Volume 6.8 fl (7.4-10.4); Monocytes # 0.4 K/mm3 (0.1-1.0); Monocytes % 10.1 % (1.7-9.3); Platelet Count 331 K/mm3 (142-424); Red Blood Count 4.38 M/mm3 (4.20-5.40); Red Cell Distribution Width 14.4 % (11.5-17.5); White Blood Count 3.7 K/mm3 (4.8-10.8)
[2020-09-07 10:26] LABS: Rapid Plasma Reagin Ab Titer Non Reactive (NonRea<1:1)
[2020-09-07 11:59] LABS: HIV Screen 4th Generation wRfx Non Reactive (Non Reactive); Hepatitis B Surface Antigen Negative (Negative); Hepatitis C Antibody <0.1 s/co ratio (0.0-0.9); Rubella Antibodies, IgG 8.58 index (Immune >0.99)
== END ==
PROVIDERS: PCP Family Medicine; Visit Provider Nurse Practitioner Obstetrics & Gynecology
DX: Z34.90 Encounter for supervision of normal pregnancy, unspecified, unspecified trimester (principal); Z3A.01 Less than 8 weeks gestation of pregnancy
CPT/HCPCS: 36415; 76817; 85025; 86592; 86703; 86762; 86850; 87340; 87380; G0432

== ENCOUNTER → 2020-11-02 10:41 | Outpatient (CLI) | payer BC, SELFPAY ==
[2020-11-02 10:43] LABS: Microscopic, Urine URINE MICROSCOPIC (MICROSCOPIC)
[2020-11-02 11:15] LABS: Appearance,Urine CLEAR (Clear); Bilirubin,Urine Negative (Negative); Blood, Urine Negative (Negative); Color,Urine YELLOW (Yellow); Glucose,Urine (UA) Negative (Negative); Ketones,Urine Negative (Negative); Leukocyte Esterase,Urine Negative (Negative); Nitrate,Urine Negative (Negative); Protein,Urine Negative (Negative); Urobilinogen,Urine 0.2 EU/dl (0.2)
== END ==
PROVIDERS: Visit Provider Nurse Practitioner Obstetrics & Gynecology
DX: Z34.90 Encounter for supervision of normal pregnancy, unspecified, unspecified trimester (principal)
CPT/HCPCS: 81001

== ENCOUNTER → 2020-12-13 10:11 | Outpatient (CLI) | payer BC, SELFPAY ==
--- NOTE | 2020-12-13 10:11 | US_ITS ---
PROCEDURE: US OB /MATERNAL DETAIL CLINICAL INDICATION: 20 week gestation Anatomy exam COMPARISON: US US OB TRANSVAGINAL from 09/06/2020 FINDINGS: There is a single live fetus which is in breech presentation. The cervix is closed and measures 4.5 cm transabdominal. The placenta is anterior and grade 1. Complete survey performed and was unremarkable on the submitted images as in PACS. No discrete anomalies identified on survey imaging by technologist. Active fetus. Three-vessel cord with satisfactory umbilical cord insertion. 4- chamber heart noted. Survey of brain & ventricles Unremarkable. Face and neck survey unremarkable. Diaphragm and chest views unremarkable. Abdomen: Both kidneys noted and unremarkable. Stomach noted and satisfactory. Spine: Survey of the spine satisfactory with no anomalies identified nor imaged. Both arms and legs noted. Amniotic Fluid: Adequate. Maternal adnexa: No significant findings. Measurements: Average ultrasound age 21weeks 2days. Gestational Age 19weeks 6days Estimated due date by ultrasound age 0504/23/2021. Estimated weight 420g BPD = 21weeks 1day OFD = 21weeks 5days HC = 20weeks 5days AC = 21weeks 6days FL = 21weeks 2days Growth Percentile= 98Percent% Heart Rate = 152bpm Cerebellum = 19weeks 4days Humerus = 21weeks 5days HC/AC is 1.09 CI is 0.76 FL/BPD is 0.71 FL/AC is 0.21 IMPRESSION: Live IUP in breech presentation with an average ultrasound age of 21 weeks 2 days. No obvious anomalies. Please see above for detail. Dictated by: Grant Rome MD 12/14/2020 10:46 Grant Rome MD in [facility] 12/14/2020 10:46
== END ==
PROVIDERS: PCP Family Medicine; Visit Provider Nurse Practitioner Obstetrics & Gynecology
DX: Z34.90 Encounter for supervision of normal pregnancy, unspecified, unspecified trimester (principal); Z3A.20 20 weeks gestation of pregnancy
CPT/HCPCS: 76811

== ENCOUNTER → 2021-01-18 11:02 | Outpatient (CLI) | payer BC, SELFPAY | PROVIDERS: PCP Family Medicine; Visit Provider Nurse Practitioner Family | DX: Z20.822 Contact with and (suspected) exposure to COVID-19 (principal); U07.1 COVID-19 | CPT/HCPCS: U0003 ==

== ENCOUNTER → 2021-01-31 12:23 | Outpatient (CLI) | payer BC, SELFPAY ==
[2021-01-31 13:42] LABS: Glucose,Fasting 86 mg/dl (74-100)
[2021-01-31 14:35] LABS: Glucose 1 Hour 167 mg/dL (74-100)
== END ==
PROVIDERS: Visit Provider Nurse Practitioner Obstetrics & Gynecology
DX: Z34.90 Encounter for supervision of normal pregnancy, unspecified, unspecified trimester (principal)
CPT/HCPCS: 36415; 82951

== ENCOUNTER 2021-02-01 09:03 | Outpatient (CLI) | payer BC, SELFPAY ==
[2021-02-01 09:10] VITALS: BP 133/75; PULSE 85; RESP 18; TEMP 36.2; O2SAT 97
== END 2021-02-01 09:10 | disposition home or self-care (01) ==
LOC: INF 09:03
PROVIDERS: PCP Family Medicine; Visit Provider Nurse Practitioner Obstetrics & Gynecology
DX: Z34.90 Encounter for supervision of normal pregnancy, unspecified, unspecified trimester (principal)
CPT/HCPCS: 96372; J2790

== ENCOUNTER → 2021-02-08 07:45 | Outpatient (CLI) | payer BC, SELFPAY ==
[2021-02-08 08:42] LABS: Glucose,Fasting 119 mg/dl (74-100)
[2021-02-08 10:19] LABS: Glucose 1 Hour 214 mg/dL (74-100)
[2021-02-08 10:39] LABS: Glucose 2 Hour 217 mg/dL (74-100)
[2021-02-08 14:27] LABS: Glucose 3 Hour 159 mg/dL (74-100)
== END ==
PROVIDERS: Visit Provider Nurse Practitioner Obstetrics & Gynecology
DX: Z34.90 Encounter for supervision of normal pregnancy, unspecified, unspecified trimester (principal)
CPT/HCPCS: 36415; 82951

== ENCOUNTER 2021-03-16 23:25 | Outpatient (CLI) | payer BC, SELFPAY ==
[2021-03-16 23:27] VITALS: BP 134/68; RESP 20; TEMP 37.2; O2SAT 99; BMI 40.1
[2021-03-16 23:30] VITALS: BMI 38.9
[2021-03-16 23:43] VITALS: BP 134/68; PULSE 106; RESP 18; TEMP 37.2
[2021-03-17 00:10] LABS: Microscopic, Urine URINE MICROSCOPIC (MICROSCOPIC)
[2021-03-17 00:12] LABS: Fetal Membrane Rupture (Rapid) Positive (Negative)
[2021-03-17 00:14] LABS: Appearance,Urine CLEAR (Clear); Bilirubin,Urine Negative (Negative); Blood, Urine Negative (Negative); Color,Urine YELLOW (Yellow); Glucose,Urine (UA) Negative (Negative); Ketones,Urine Negative (Negative); Leukocyte Esterase,Urine Negative (Negative); Nitrate,Urine Negative (Negative); Protein,Urine TRACE (Negative); Specific Gravity, Urine 1.015 (1.005-1.030); Urobilinogen,Urine 0.2 EU/dl (0.2)
[2021-03-17 00:22] LABS: Amphetamine/Metha Screen,Urine Negative ng/ml (<1000); Bacteria,Urine Trace /lpf; Benzodiazepines Screen,Urine Negative ng/ml (<200); Squamous Epithelial Cell,Urine 50-100 #/hpf (0-5)
[2021-03-17 00:23] LABS: Barbiturates Screen,Urine Negative ng/ml (<200); Cannabinoid Screen,Urine Negative ng/ml (<50)
[2021-03-17 00:24] LABS: Cocaine Screen,Urine Negative ng/ml (<300)
[2021-03-17 00:25] LABS: Methadone Screen,Urine Negative ng/ml (<300); Opiate Screen,Urine Negative ng/ml (<300)
[2021-03-17 00:26] LABS: Phencyclidine Screen,Urine Negative ng/ml (<25)
== END 2021-03-17 00:55 ==
LOC: OBOUT 23:26 → OB 23:27
PROVIDERS: PCP Family Medicine; Referring Provider Nurse Practitioner Obstetrics & Gynecology; Visit Provider Obstetrics & Gynecology
DX: O26.893 Other specified pregnancy related conditions, third trimester (principal); Z3A.33 33 weeks gestation of pregnancy
CPT/HCPCS: 59025; 80305; 81001; 84112; 94761; 96365; 96372; G0283; J0290

== ENCOUNTER 2021-12-04 14:28 | Emergency (ER) | payer BC, SELFPAY ==
--- NOTE | 2021-12-04 14:44 | XR_ITS ---
FINAL REPORT CLINICAL HISTORY: fall FINDINGS: RIGHT ANKLE: Three views of the right ankle were obtained. There is no acute fracture or dislocation. The joint spaces and mortise are intact. There is moderate soft tissue swelling about the ankle. IMPRESSION: Swelling with no acute bony abnormality. Reviewed, Interpreted and Dictated by Alexandr Oviedo MD Transcribed by Saad Mix Authenticated by Alexandr Oviedo MD on 12/04/2021 03:54:29 PM [facility]
--- NOTE | 2021-12-04 14:44 | XR_ITS ---
FINAL REPORT CLINICAL HISTORY: fall FINDINGS: Two views of the right tibia-fibula demonstrate no acute fracture or dislocation. The joint spaces appear normal. The visualized bony structures are well aligned. No soft tissue abnormality is seen. IMPRESSION: No acute process. Reviewed, Interpreted and Dictated by Alexandr Oviedo MD Transcribed by Saad Mix Authenticated by Alexandr Oviedo MD on 12/04/2021 03:54:25 PM [facility]
--- NOTE | 2021-12-04 14:44 | XR_ITS ---
FINAL REPORT CLINICAL HISTORY: fall FINDINGS: 3 views of the right foot were obtained. There is no acute fracture or dislocation. There is a moderate plantar spur. The joint spaces are intact. There is no soft tissue abnormality. IMPRESSION: No acute process. Reviewed, Interpreted and Dictated by Alexandr Oviedo MD Transcribed by Saad Mix Authenticated by Alexandr Oviedo MD on 12/04/2021 03:54:28 PM [facility]
[2021-12-04 15:46] VITALS: BP 140/80; PULSE 70; RESP 15; TEMP 37; O2SAT 100; BMI 37.1
--- NOTE | 2021-12-04 16:14 | HMH.EDUTC ---
[facility] [place] Disposition Clinical Impression: Right foot sprain Qualifiers: Encounter type: initial encounter Qualified Code(s): S93.601A - Unspecified sprain of right foot, initial encounter Ankle sprain Qualifiers: Encounter type: initial encounter Involved ligament of ankle: unspecified ligament Laterality: right Qualified Code(s): S93.401A - Sprain of unspecified ligament of right ankle, initial encounter Disposition: Home, Self-Care Condition on Discharge: Good Instructions: How to Use Crutches, Ankle Sprain, DI for Ankle Sprain, DI for Foot Sprain Additional Instructions: Rest the extremity, apply ice for 15 minutes as tolerated three or four times per day, Elevate the extremity as tolerated while you are resting. Take ibuprofen for pain. I sent in a prescription to your pharmacy. Follow up with Dr. Paniagua (orthopedics) or Dr. Nath (podiatry). Sometimes there can be fractures that don't show up well on the first set of x-rays. So, you should follow up if you continue to have symptoms. I put in a referral but you need to call his or her office and schedule an appointment. Follow up with your regular doctor. GO TO THE ER FOR ANY WORSENING SYMPTOMS Prescriptions: Ibuprofen [Ibuprofen 800mg Tablet] 800 mg PO Q8HP PRN #30 tab PRN Reason: Moderate Pain Transmission Status: Received by [facility] Referrals: Frandy Castellon MD [Primary Care Provider] - Bharat Paniagua MD [Staff Physician] - Forms: Work/School Release Time of Disposition: 16:45 Medical Decision Making - Medical Records Medical records reviewed: No: I reviewed the patient's medical records. - Andrea Inquiry Pt receiving controlled substance: No Vital Signs: 12/04/21 15:46 12/04/21 17:02 Temperature 98.6 F 98.6 F Temperature Source Oral Oral Pulse Rate 70 Pulse Rate [Left] 70 Respiratory Rate 15 15 Blood Pressure 140/80 Blood Pressure [Right Arm] 140/80 Blood Pressure Mean [Right Arm] 100 02 Sat by Pulse Oximetry 100 - Radiology Data #1 Image(s): Ankle Image Reviewed: Yes I reviewed the patient's radiology image, Yes I have reviewed radiologist's interpretation Preliminary Findings: Normal/NAD, No Fracture Seen FINAL REPORT CLINICAL HISTORY: fall FINDINGS: RIGHT ANKLE: Three views of the right ankle were obtained. There is no acute fracture or dislocation. The joint spaces and mortise are intact. There is moderate soft tissue swelling about the ankle. IMPRESSION: Swelling with no acute bony abnormality. Reviewed, Interpreted and Dictated by Alexandr Oviedo MD Transcribed by Saad Mix Authenticated by Alexandr Oviedo MD on 12/04/2021 03:54:29 PM [facility] #2 Image(s): Foot/Toes Image Reviewed: Yes I reviewed the patient's radiology image, Yes I have reviewed radiologist's interpretation Preliminary Findings: Normal/NAD, No Fracture Seen FINAL REPORT CLINICAL HISTORY: fall FINDINGS: 3 views of the right foot were obtained. There is no acute fracture or dislocation. There is a moderate plantar spur. The joint spaces are intact. There is no soft tissue abnormality. IMPRESSION: No acute process. Reviewed, Interpreted and Dictated by Alexandr Oviedo MD Transcribed by Saad Mix Authenticated by Alexandr Oviedo MD on 12/04/2021 03:54:[address] [facility] HPI - General Stated complaint: AO fall 12/04 rt ankle pain Time Seen by Provider: 12/04/21 16:14 Mode of Arrival: Ambulatory Source of Information: Patient Limitations: No Limitations Description of Symptoms (Recalled from Triage Doc. by RN): pt was carrying her child to the car and fell. pt c/o R foot/ankle and lower leg pain. HEENT Symptoms (Recalled from RN notes): No Resp Symptoms (Recalled from RN notes): No Skin Symptoms (Recalled from RN notes): No MS Symptoms (Recalled from RN notes): Yes Functional Status (Recalled from RN notes): wnl - History of Present Illness Provider Co
[2021-12-04 17:02] VITALS: BP 140/80; PULSE 70; RESP 15; TEMP 37
== END 2021-12-04 17:15 | disposition home or self-care (01) ==
PROVIDERS: Emergency Provider Nurse Practitioner Family; PCP Family Medicine
DX: S93.401A Sprain of unspecified ligament of right ankle, initial encounter (principal); S93.601A Unspecified sprain of right foot, initial encounter; W01.0XXA Fall on same level from slipping, tripping and stumbling without subsequent striking against object, initial encounter; Y92.019 Unspecified place in single-family (private) house as the place of occurrence of the external cause; F17.210 Nicotine dependence, cigarettes, uncomplicated
CPT/HCPCS: 29515; 73590; 73610; 73630; 99203; G0463

== ENCOUNTER → 2021-12-12 09:29 | Outpatient (CLI) | payer BC, SELFPAY ==
--- NOTE | 2021-12-12 09:33 | MR_ITS ---
FINAL REPORT CLINICAL HISTORY: INJURY OR RIGHT ANKLE. pt fell x1wk ago with entire foot swelling and bruising. numbness in 3rd-5th toes. prior x-ray 12-04-21 FINDINGS: Multiplanar MR imaging of the right ankle was performed without contrast. There is bone bruising at the medial talus without a well-defined fracture. No osteochondral lesion is identified. There are tears or partial tears of the anterior talofibular ligament and calcaneofibular ligament. There are partial tear of the deltoid ligament. The flexor and extensor tendons are intact. The posterior plantar aponeurosis is intact. No significant joint effusion is seen. The musculature is intact. There is dorsal foot subcutaneous edema or hemorrhage. IMPRESSION: Tears or partial tears of the anterior talofibular ligament and calcaneofibular ligament. Partial tear of the deltoid ligament. Bone bruising at the medial talus without a well-defined fracture. Dorsal foot subcutaneous edema or hemorrhage. Reviewed, Interpreted and Dictated by Kris Urrutia III, MD Transcribed by Karly Warren Authenticated by Kris Urrutia III, MD on 12/12/2021 11:21:55 AM [facility]
== END ==
LOC: RAD 09:31
PROVIDERS: PCP Family Medicine; Visit Provider Nurse Practitioner Family
DX: S99.911D Unspecified injury of right ankle, subsequent encounter (principal); M25.471 Effusion, right ankle
CPT/HCPCS: 73721

== ENCOUNTER 2022-02-04 16:00 | Outpatient (RCR) | payer BC, SELFPAY ==
--- NOTE | 2022-01-08 17:27 | HMH.PTOPEV ---
PT Outpatient Evaluation Rehab PT Outpatient Evaluation Start: 01/08/22 17:12 Freq: Status: Active Protocol: Document 01/08/22 17:12 JOSIAH (Rec: 01/08/22 17:27 YASELVIN [id number]) Electronically Signed By Willie Obregon, PT 01/08/22 17:12 Outpatient Therapy Subjective History Subjective History Patient is a 36 year old female presenting to outpatient PT with reports of R foot/ankle pain starting 12/04 (5 weeks) after a fall resulting in inversion ankle sprain at home. Most recent imaging indicates partial tears of ATFL, CFL and deltoid ligaments. Also referred for peroneal tendinitis. Patient reports that she his currently FWB and allowed to ween from boot into brace. No other comorbidities to report. Chief Complaint Pain,Stiff,Swelling Symptom Type Throb,Sharp Symptoms Relieved By Rest/Positioning,Ice,Elevation Symptoms Aggravated By Standing,Physical Activity, Walking Prior Functional Limitations None Current Functional Limitations Housework,Standing,Recreation Activity,Walking,Stairs, Balance Symptom Description Intermittent Level of pain today (0-10) 0 Pain scale - at its best (0-10) 0 Pain scale - at its worst (0-10) 6 Ankle/Foot Eval Gait Observation General Gait Pattern Observation Antalgic Gait,Decrease Weight Bear (R) Palpation Tenderness right Ankle/Foot Palpation Overall Comment 3/4 ATF TTP positive PTF TTP positive CF TTP positive Deltoid ligament TTP positive ROM Ankle/Foot Dorsiflexion w/Knee Extended -5 Active Range Motion (degrees) Ankle/Foot Dorsiflexion w/Knee Extended -1 Passive Range (degrees) Ankle/Foot Plantar Flexion Active Range WNL of Motion (degrees) Ankle/Foot Eversion Active Range of 17 Motion (degrees) Ankle/Foot Eversion Passive Range of 22 Motion (degrees) Ankle/Foot Inversion Active Range of 14 Motion (degrees) Ankle/Foot Inversion Passive Range of 19 Motion (degrees) Ankle/Foot ROM Limitations Soft Tissue Tightness,Pain Great Toe ROM Reason Not Measured Within Functional Limits Accessory Movements Ankle Accessory Movements that Elicit Talus Dorsal [place],Talus Symp
== END 2022-02-04 16:05 | disposition home or self-care (01) ==
LOC: PT 16:00
PROVIDERS: PCP Family Medicine; Visit Provider Podiatrist
DX: M25.571 Pain in right ankle and joints of right foot (principal); M25.371 Other instability, right ankle; M76.71 Peroneal tendinitis, right leg; S93.401A Sprain of unspecified ligament of right ankle, initial encounter; S93.421A Sprain of deltoid ligament of right ankle, initial encounter
CPT/HCPCS: 97014; 97016; 97110; 97112; 97163; G0283

== ENCOUNTER 2022-10-25 16:48 | Emergency (ER) | payer BC, SELFPAY ==
[2022-10-25 18:40] VITALS: BP 140/92; PULSE 101; RESP 18; TEMP 37.5; O2SAT 97; BMI 37.9
[2022-10-25 18:53] LABS: UTC Influenza A Antigen Positive (Negative); UTC Influenza B Antigen Negative (Negative)
[2022-10-25 18:58] VITALS: BP 140/92; PULSE 101; RESP 18; TEMP 37.5; O2SAT 97
--- NOTE | 2022-10-25 19:12 | EXP.UTC ---
Discharge Plan Disposition Patient Disposition: Home, Self-Care Condition: Good Prescriptions Prescriptions: New oseltamivir [Tamiflu] 75 mg capsule 75 mg PO BID 5 Days Qty: 10 0RF [id number] [Bromfed DM] 2-30-10 mg/5 mL Syrup 10 ml PO Q4H PRN (Reason: Cough) Qty: 240 0RF No Action Mirena 20 mcg/24 hours (6 yrs) 52 mg intrauterine device INTRAUTERI ibuprofen 800 MG tablet 800 mg PO Q8HP PRN (Reason: Moderate Pain) Qty: 30 0RF Referrals Follow up/Referrals: Sugey Robison MD [Primary Care Provider] - See instructions Activity Restrictions/Add. Instructions Additional Instructions/Restrictions: Start Tamiflu today if you are going to take it. Discussed risk and possible benefits. Lots of rest Increase Fluids water, Gatorade, powerade, pedialyte,if /toddler/child Alternate Tylenol and / or ibuprofen as discussed for fever, aches, chills Follow up IMMEDIATELY with your family doctor for new or worsening Symptoms OR no noticeable improvement over the next 48-72 hours, 911 for difficulty or breathing You or your child area contagious until no fever, aches, chills for 24 hours with medication for symptoms Help Prevent the spread of influenza: ?Wash your hands often. Use soap and water. Wash your hands after you use the bathroom, change a child's diapers, or sneeze. Wash your hands before you prepare or eat food. Use gel hand cleanser that has 60% alcohol, when soap and water are not available. Do not touch your eyes, nose, or mouth unless you have washed your hands first. Cover your mouth when you sneeze or cough. Cough into a tissue or the bend of your arm. If you use a tissue, throw it away immediately and wash your hands. Clean shared items with a germ-killing coil cleaner. Clean table surfaces, doorknobs, and light switches. Do not share towels, silverware, and dishes with people who are sick. Wash bed sheets, towels, silverware, and dishes with soap and water. Wear a mask over your mouth and nose if you are sick. The face mask may help protect others from becoming infected with the flu. Wear the mask when in common areas of your home or if you seek care with a healthcare provider. Stay away from others if you are sick. Stay at home until 24 hours after your fever and symptoms are gone. Clinical Impressions Clinical Impression: Influenza Stand Alone Forms Stand Alone Forms: Work/School Release Instructions Patient Instructions: DI for Influenza -- Adult, Influenza Discharge ED Provider[place] Nabila [place] [facility] [place] General Stated complaint: Weakness, fever Mode of Arrival: Ambulatory Source of Information: Patient Limitations: No Limitations Time Seen by Provider: 10/25/22 19:12 Description of Symptoms (Recalled from Triage Doc. by RN): PATIENT C/O COUGH, FEVER, AND BODY ACHES SINCE LAST NIGHT. RECENTLY EXPOSED TO FLU HEENT Symptoms (Recalled from RN notes): No Resp Symptoms (Recalled from RN notes): Yes Skin Symptoms (Recalled from RN notes): No MS Symptoms (Recalled from RN notes): No Functional Status (Recalled from RN notes): WNL History of Present Illness Provider Complaint: Patient states that she was recently exposed to flu State that last night she started with body aches, chills, cough and fever States that she feels like she may have the flu now too Related Data Home Medications Medication Instructions Recorded Confirmed levonorgestrel 20 mcg/24 hours (8 intrauterine 05/22/21 01/06/22 yrs) 52 mg intrauterine device (Mirena) Previous Rx's Medication Instructions Recorded ibuprofen 800 mg tablet 800 mg PO Q8HP PRN Moderate Pain 12/04/21 #30 tabs qjuuvywxxdsbkpv-qpbdvctxsypycgb-BQ 10 ml PO Q4H PRN Cough #240 mL 10/25/22 2 mg-30 mg-10 mg/5 mL oral syrup (Bromfed DM) oseltamivir 75 mg
== END 2022-10-25 19:30 | disposition home or self-care (01) ==
PROVIDERS: Emergency Provider Nurse Practitioner; PCP Family Medicine
DX: J10.1 Influenza due to other identified influenza virus with other respiratory manifestations (principal)
CPT/HCPCS: 87804; 99212; G0463

== ENCOUNTER → 2023-06-04 09:05 | Outpatient (CLI) | payer BC, SELFPAY ==
[2023-06-04 09:54] LABS: Basophils # 0.1 K/mm3 (0-0.2); Eosinophils # 0.2 K/mm3 (0.0-0.4); Eosinophils % 3.6 % (0.1-12.0); Hematocrit 46.8 % (37.0-47.0); Hemoglobin 15.1 g/dL (12.2-16.2); Lymphocytes # 2.8 K/mm3 (0.7-4.5); Mean Corpuscular HGB Conc 32.2 g/dL (31.8-35.4); Mean Corpuscular Hemoglobin 30.4 pg (27.0-31.2); Mean Corpuscular Volume 94.3 fl (81-99); Monocytes # 0.8 K/mm3 (0.1-1.0); Monocytes % 15.3 % (1.7-9.3); Neutrophils # 1.3 K/mm3 (1.8-7.8); Neutrophils % 25.1 % (37.0-80.0); Platelet Count 344 K/mm3 (142-424); Red Blood Count 4.97 M/mm3 (4.20-5.40); Red Cell Distribution Width 12.9 % (11.5-17.5); White Blood Count 5.2 K/mm3 (4.8-10.8)
[2023-06-04 09:56] LABS: MANUAL DIFFERENTIAL MANUAL DIFFERENTIAL (MANUAL DIFF)
[2023-06-04 10:35] LABS: 25-OH Vitamin D, Total 18.6 ng/mL (30-100)
[2023-06-04 11:04] LABS: Hemoglobin A1C 5.7 % (4.0-6.0)
[2023-06-04 11:07] LABS: Eosinophils % 1 % (0-3); Lymphocytes % 56 % (10-50); Monocytes % 16 % (2-9); Neutrophils % 27 % (42-76); Platelet Estimate Normal; RBC Morphology Normal; Total Cells Counted 100; Toxic Granulation 1+
[2023-06-04 11:08] LABS: Alanine Aminotransferase 51 U/L (12-78); Albumin/Globulin Ratio 1.4 (1.1-1.8); Alkaline Phosphatase 76 U/L (38-126); Anion Gap 11.3 mEq/L (5-15); Aspartate Amino Transferase 42 U/L (14-36); Bilirubin,Total 0.5 mg/dl (0.2-1.3); Blood Urea Nitrogen 9 mg/dl (7-17); Calcium 8.5 mg/dl (8.4-10.2); Carbon Dioxide 24 mmol/L (22.0-30.0); Chloride 107 mmol/L (98-107); Chol/HDL Ratio 7.7 (1-3.5); Cholesterol 209 mg/dl (140-200); Estimated Glomerular Filt Rate 180 ml/min (>60); GFR (African American) 217 ML/MIN (>60); Globulin 2.8 g/dL (1.3-3.2); Glucose 104 mg/dl (74-100); HDL Cholesterol 27 mg/dl (40-60); Potassium 4.3 mmoL/L (3.5-5.1); Sodium 138 mmol/L (136-145); Total Protein,Serum 6.8 g/dl (6.3-8.2); Triglycerides 111 mg/dl (30-150); VLDL Cholesterol 22 mg/dL (0-40)
[2023-06-04 11:18] LABS: Direct LDL Cholesterol 158.33 mg/dL (100-129)
[2023-06-04 12:07] LABS: Iron 97 ug/dL (37-170)
[2023-06-04 12:18] LABS: Total Iron Binding Capacity 354 ug/dL (265-497)
[2023-06-04 13:42] LABS: Vitamin B12 539 pg/mL (239-931)
== END ==
LOC: LAB 09:05
PROVIDERS: PCP Nurse Practitioner Family; Visit Provider Nurse Practitioner Family
DX: Z00.00 Encounter for general adult medical examination without abnormal findings (principal); D50.9 Iron deficiency anemia, unspecified; R53.83 Other fatigue; E55.9 Vitamin D deficiency, unspecified; E66.9 Obesity, unspecified; Z68.39 Body mass index [BMI] 39.0-39.9, adult
CPT/HCPCS: 36415; 80053; 80061; 82306; 82607; 83036; 83540; 83550; 84443; 85007; 85025

== ENCOUNTER 2023-09-21 18:45 | Emergency (ER) | payer BC, SELFPAY ==
[2023-09-21] VITALS (10 sets, daily range): BP systolic 123–141; BP diastolic 80–87; PULSE 86–98; RESP 16–18; TEMP 36.7–37.8; O2SAT 91–99; BMI 30.9
--- NOTE | 2023-09-21 18:43 | ECG_ITS ---
APPROVED REPORT Exam: Resting ECG HR:91 bpm ECG Measurements Heart Rate 91 AXES TX 155 P 58 QRSd 88 QRS 78 QT 328 T 19 QTc 377 Conclusion SINUS RHYTHM NORMAL ECG UNCONFIRMED REPORT Electronically signed by : Frandy Bustos MD 09/22/2023 14:47:21
--- NOTE | 2023-09-21 18:49 | XR_ITS ---
PROCEDURE INFORMATION: Exam: XR Chest Exam date and time: 09/21/2023 6:49 PM Age: 38 years old Clinical indication: Cough; Additional info: Cp TECHNIQUE: Imaging protocol: Radiologic exam of the chest. Views: 2 views. COMPARISON: CR CXR CHEST(2 VIEWS-NOT PORTABLE) 11/24/2017 11:29 AM FINDINGS: Lungs: Normal. Pleural spaces: Normal No pleural effusion. No pneumothorax. Heart/Mediastinum: Normal. No cardiomegaly. Bones/joints: Mild thoracic spine degenerative change. IMPRESSION: No acute findings.
--- NOTE | 2023-09-21 18:50 | HMH.EDGENADL ---
Discharge Plan Disposition Patient Disposition: Home, Self-Care Chief Complaint: Chest Pain Prescriptions Prescriptions: No Action ketorolac 10 mg tablet 10 mg PO Q6H Referrals Follow up/Referrals: Frandy Bustos MD [Primary Care Provider] - See instructions Ra Cobos MD [Staff Physician] - See instructions Activity Restrictions/Add. Instructions Additional Instructions/Restrictions: At this time it was felt you are safe to be discharged home. If new or worsening symptoms please do not hesitate to return the emergency department. If symptoms persist please follow-up with your family doctor as you are able. If your chest pain is not improving while you heal from this viral illness please call and schedule an appointment with Dr. Cobos. Clinical Impressions Clinical Impression: Chest pain, Acute viral syndrome Discharge ED Provider: Nagi Paige General Adult HPI General Chief complaint: Chest Pain Stated complaint: cp Time Seen by Provider: 09/21/23 18:46 History of Present Illness HPI narrative: Patient is a 38-year-old female with past medical history of acid reflux who presents emergency department for evaluation of chest pain onset was acute, earlier today. This was preceded by a productive cough yesterday. Pain is substernal and radiating into her left inferior thoracic cage. No other acute complaints at this time. Related Data Home Medications Medication Instructions Recorded Confirmed ketorolac 10 mg tablet 10 mg PO Q6H 12/26/22 12/26/22 Allergies Allergy/AdvReac Type Severity Reaction Status Date / Time No Known Allergies Allergy Verified 12/26/22 13:14 [facility] Disclaimer: The information contained in this section may have been updated after the patient was seen, as this information can be updated by other users. Medical History No significant past medical history Social History Smoking Status: Current every day smoker tobacco type: cigarettes packs per day: 1 alcohol intake: never substance use type: denies use current occupational status: employed Travel in the last 8 weeks: None household members: spouse housing: house caffeine: Yes ROS Obtained: Yes Systems reviewed as appropriate & no additional complaints except as documented Physical Exam General General appearance: alert and in no apparent distress Head Head exam: atraumatic and normocephalic Eye Eye exam: Present PERRL and EOMI ENT ENT exam: Present mucous membranes moist Neck Neck exam: Present normal inspection Chest Chest inspection: Present normal inspection and symmetric chest wall rise Respiratory Respiratory exam: Present normal lung sounds bilaterally; Absent respiratory distress Cardiovascular Cardiovascular exam: Present regular rate, normal rhythm and other (No pitting edema bilateral lower extremities) Abdominal Exam Abdominal exam: Present soft; Absent tenderness Extremities Exam Extremities exam: Present normal inspection Neurological Exam Neurological exam: Present alert Psychiatric Psychiatric exam: Present normal affect Skin Skin exam: Present warm and dry Medical Decision Making Andrea Inquiry Pt receiving controlled substance: No Vital Signs: 09/21/23 18:58 09/21/23 19:01 09/21/23 20:00 Temperature 100.1 F H Temperature Source Oral Pulse Rate 91 H 93 H Pulse Rate [Apical] 91 H Respiratory Rate 18 Blood Pressure 127/80 Blood Pressure [Right Arm] 130/80 Blood Pressure Mean [Right Arm] 96 Blood Pressure Source [Right Arm] Automatic Cuff Blood Pressure Position [Right Arm] Sitting 02 Sat by Pulse Oximetry 93 L 92 L Oxygen Delivery Method Room Air Room Air 09/21/23 20:30 09/21/23 21:00 09/21/23 21:30 Temperature Temperature Source Pulse Rate 95 H 98 H 97 H Pulse Rate [Apical] Respiratory Rat
--- NOTE | 2023-09-21 19:10 | PC.NURSE ---
Rounded on pt, no new complaints at this time. pt is resting on the stretcher talking with her visitor.
[2023-09-21 19:23] LABS: Chloride 105 mmol/L (98-107); Potassium 3.8 mmoL/L (3.5-5.1); Sodium 140 mmol/L (136-145)
[2023-09-21 19:25] LABS: Alanine Aminotransferase 61 U/L (12-78); Aspartate Amino Transferase 42 U/L (14-36); Blood Urea Nitrogen 5 mg/dl (7-17); Creatinine Clearance Estimated 199 mL/min (50-200); Estimated Glomerular Filt Rate 139 ml/min (>60); GFR (African American) 168 ML/MIN (>60)
[2023-09-21 19:26] LABS: Coronavirus 19, PCR Not Detected (NotDetected); Influenza A, PCR Not Detected (NotDetected); Influenza B, PCR Not Detected (NotDetected)
[2023-09-21 19:26] LABS: Albumin Level 4.6 g/dl (3.5-5.0); Albumin/Globulin Ratio 1.2 (1.1-1.8); Alkaline Phosphatase 93 U/L (38-126); Anion Gap 11.8 mEq/L (5-15); Bilirubin,Total 0.4 mg/dl (0.2-1.3); Calcium 8.8 mg/dl (8.4-10.2); Carbon Dioxide 27 mmol/L (22.0-30.0); Globulin 3.9 g/dL (1.3-3.2); Glucose 94 mg/dl (74-100); Total Protein,Serum 8.5 g/dl (6.3-8.2)
[2023-09-21 19:27] LABS: D-Dimer 0.76 ug/mL (0.0-0.5)
--- NOTE | 2023-09-21 19:36 | PC.NURSE ---
Completed shift change introduction during sit visit with pt, denies needs at this time, no acute distress noted or reported
[2023-09-21 19:38] LABS: Basophils # 0.1 K/mm3 (0-0.2); Basophils % 1.4 % (0.1-2.0); Eosinophils # 0.2 K/mm3 (0.0-0.4); Eosinophils % 2.9 % (0.1-12.0); Hemoglobin 16.3 g/dL (12.2-16.2); Lymphocytes # 2.7 K/mm3 (0.7-4.5); Lymphocytes % 46.2 % (10-50); Mean Corpuscular HGB Conc 34.7 g/dL (31.8-35.4); Mean Corpuscular Hemoglobin 32.8 pg (27.0-31.2); Mean Corpuscular Volume 94.5 fl (81-99); Mean Platelet Volume 7.6 fl (7.4-10.4); Monocytes # 1.2 K/mm3 (0.1-1.0); Monocytes % 20.4 % (1.7-9.3); Neutrophils # 1.7 K/mm3 (1.8-7.8); Neutrophils % 29.2 % (37.0-80.0); Platelet Count 359 K/mm3 (142-424); Red Blood Count 4.97 M/mm3 (4.20-5.40); Red Cell Distribution Width 12.8 % (11.5-17.5); White Blood Count 5.9 K/mm3 (4.8-10.8)
[2023-09-21 19:40] LABS: MANUAL DIFFERENTIAL MANUAL DIFFERENTIAL (MANUAL DIFF)
[2023-09-21 19:44] LABS: Troponin I < 0.01 ng/ml (0.00-0.034)
[2023-09-21 20:11] LABS: Eosinophils % 1 % (0-3); Lymphocytes % 53 % (10-50); Monocytes % 17 % (2-9); Neutrophils % 24 % (42-76); Platelet Estimate Normal; RBC Morphology Normal; Total Cells Counted 100
--- NOTE | 2023-09-21 20:44 | PC.NURSE ---
rounded on patient no new complaints
[2023-09-21 22:51] LABS: Troponin I < 0.01 ng/ml (0.00-0.034)
== END 2023-09-21 23:16 | disposition home or self-care (01) ==
PROVIDERS: Emergency Provider Emergency Medicine; PCP Internal Medicine Adolescent Medicine
DX: R07.2 Precordial pain (principal); B34.9 Viral infection, unspecified; F17.210 Nicotine dependence, cigarettes, uncomplicated
CPT/HCPCS: 36415; 71046; 80053; 84484; 85007; 85025; 85378; 87636; 93005; 99284

== ENCOUNTER 2024-04-21 16:28 | Emergency (ER) | payer BC, SELFPAY ==
[2024-04-21 16:50] VITALS: BP 155/93; PULSE 107; RESP 20; TEMP 38.6; O2SAT 98; BMI 42.3
--- NOTE | 2024-04-21 16:54 | ED_ITS ---
Discharge Plan Disposition Patient Disposition: Home, Self-Care Condition: Good Prescriptions Prescriptions: New ibuprofen [IBU] 800 mg tablet 800 mg PO Q8HP PRN (Reason: Moderate Pain) Qty: 30 0RF No Action Mirena 21 mcg/24 hours (8 yrs) 52 mg intrauterine device 1 device intrauterine ONCE Referrals Follow up/Referrals: Frandy Bustos MD [Primary Care Provider] - See instructions Activity Restrictions/Add. Instructions Additional Instructions/Restrictions: Drink plenty of fluids. Take ibuprofen for pain or fever. Follow up with your regular doctor. GO TO THE ER FOR ANY WORSENING SYMPTOMS Clinical Impressions Clinical Impression: Adverse effect of other viral vaccines, initial encounter Instructions Patient Instructions: DI for Adverse Drug Reaction -- Other, Ibuprofen Discharge ED Provider: Hollis Munoz [facility] General Stated complaint: Fever,headache,body aches Time Seen by Provider: 04/21/24 16:54 History of Present Illness Provider Complaint: She states that she had a puncture wound to her right palm 2 days ago. She was given a tetanus immunization then for this. She states that later that night she began to feel achy all over and run a low grade fever. Since then, she has continued to have these symptoms, but she states that her symptoms have seemed to be getting better today. She denies any local reaction at the site of her tdap injection. She denies any other symptoms or complaints. Related Data Home Medications Medication Instructions Recorded Confirmed levonorgestrel 21 mcg/24 hr (up to 1 device intrauterine ONCE 11/12/23 11/12/23 8 years) 52 mg intrauterine device (Mirena) Previous Rx's Medication Instructions Recorded ibuprofen 800 mg tablet (IBU) 800 mg PO Q8HP PRN Moderate Pain 04/21/24 #30 tabs Allergies Allergy/AdvReac Type Severity Reaction Status Date / Time No Known Allergies Allergy Verified 11/12/23 16:11 [facility] Disclaimer: The information contained in this section may have been updated after the patient was seen, as this information can be updated by other users. Medical History No significant past medical history Surgical History (Updated 11/12/23 @ 16:14 by BLAISE Gerber) H/O total cystectomy History of cholecystectomy H/O hand surgery Family History Mother Diabetes Hypertension Father Cancer Social History Smoking Status: Current every day smoker tobacco type: cigarettes packs per day: 1 alcohol intake: never substance use type: denies use current occupational status: employed Travel in the last 8 weeks: None household members: spouse housing: house caffeine: Yes ROS Obtained: Yes All systems reviewed & no additional complaints except as documented Constitutional Constitutional: Reports as per HPI, Reports body ache, Reports chills (mild) and Reports fever(s) Eyes Eyes: Denies eye discharge ENT Ears, Nose, Mouth, and Throat: Denies dizziness, Denies otalgia and Denies sore throat Cardiovascular Cardiovascular: Denies chest pain Respiratory Respiratory: Denies shortness of breath, Denies chest congestion, Denies cough, Denies stridor and Denies wheezing Gastrointestinal Gastrointestingal: Denies nausea or vomiting Musculoskeletal Musculoskeletal: Reports as per HPI and Reports arthralgias Integumentary/Breasts Skin/Breast: Denies rash Neurologic Neurologic: Denies dizziness and Denies paresthesias Allergic/Immunologic Allergic/Immunologic: Denies wheezing Physical Exam General General appearance: alert and in no apparent distress Head Head exam: atraumatic, normocephalic and normal inspection Eye Eye exam: Present normal appearance, PERRL and EOMI ENT ENT exam: Present normal exam, normal oropharynx, mucous membranes moist, TM's normal bilaterally and normal external ear exam Neck Neck exam: Present normal inspection, full ROM and trachea midline; Absent meningismus or lymphadenopathy Chest Chest inspection: Present normal inspection and symmetric chest wall rise; Absent tenderness Respiratory Respiratory exam: Present normal lung sounds bilaterally; Absent respiratory distress Cardiovascular Cardiovascular exam: Present regular rate and normal rhythm; Absent JVD Abdominal Exam Abdominal exam: Present soft and normal bowel sounds; Absent distention, tenderness or guarding Extremities Exam Extremities exam: Present normal inspection, full ROM and normal capillary refill; Absent calf tenderness Back Exam Back exam: Present normal inspection; Absent tenderness Neurological Exam Neurological exam: Present alert and oriented X3 Psychiatric Psychiatric exam: Present normal affect and normal mood Skin Skin exam: Present warm, dry, intact and normal color Lymphatic Lymphatic Findings: no adenopathy Medical Decision Making Medical Records Medical records reviewed: No I reviewed the patient's medical records. Andrea Inquiry Pt receiving controlled substance: No
[2024-04-21 17:24] VITALS: BP 155/93; PULSE 107; RESP 20; TEMP 38.6; O2SAT 98
[2024-04-21 17:30] LABS: UTC Strep Screen (Rapid) Negative (Negative)
[2024-04-21 17:31] LABS: UTC Influenza A Antigen Negative (Negative)
[2024-04-21 17:32] LABS: UTC Influenza B Antigen Negative (Negative)
== END 2024-04-21 17:32 | disposition home or self-care (01) ==
PROVIDERS: Emergency Provider Nurse Practitioner Family; PCP Internal Medicine Adolescent Medicine
DX: T50.B95A Adverse effect of other viral vaccines, initial encounter (principal); R51.9 Headache, unspecified; R50.9 Fever, unspecified
CPT/HCPCS: 87804; 87880; 99212; 99214; G0463